=== PATIENT | male | born 1975 | race African-American/Black ===

== ENCOUNTER 2016-10-10 08:41 | Emergency (ER) | payer BC ==
[~2016-10-10] VITALS: Ht 188 cm; Wt 120.7 kg
[2016-10-10 09:02] VITALS: BP 161/91
--- NOTE | 2016-10-10 09:18 | PHYS DOC ---
Past Medical History Past Medical History: No Pertinent History Past Surgical History: Tonsillectomy Additional Information: Nonsmoker Alcohol Use: None Drug Use: None Adult General Chief Complaint Chief Complaint: CHEST WALL PAIN HPI HPI Patient is a 41 year old male who presents with intermittent left anterior chest wall pains over the past week. He has no pain currently. States these are crampy pains that occur at rest or when he twists his thorax. These pains get better with exercise. Pain is mild. Lasts seconds to minutes. He denies lightheadedness, diaphoresis, palpitations, pain radiation, nausea or vomiting, fever or chills, cough, dyspnea, hemoptysis, leg pain or swelling, orthopnea, nausea or vomiting, abdominal pain. Review of Systems Review of Systems Constitutional: Denies fever or chills [] Eyes: Denies change in visual acuity, redness, or eye pain [] HENT: Denies nasal congestion or sore throat [] Respiratory: Denies cough or shortness of breath [] Cardiovascular: No additional information not addressed in HPI [] GI: Denies abdominal pain, nausea, vomiting, bloody stools or diarrhea [] : Denies dysuria or hematuria [] Musculoskeletal: Denies back pain or joint pain [] Integument: Denies rash or skin lesions [] Neurologic: Denies headache, focal weakness or sensory changes [] Endocrine: Denies polyuria or polydipsia [] Family History Family History No family history of young coronary artery disease or young Allergies Allergies Allergies Coded Allergies Type Severity Reaction Last Updated Verified No Known Drug Allergies 01/11/14 No Physical Exam Physical Exam Constitutional: Well developed, well nourished, no acute distress, non-toxic appearance. [] HENT: Normocephalic, atraumatic, bilateral external ears normal, oropharynx moist, no oral exudates, nose normal. [] Eyes: PERRLA, EOMI. [] Neck: Normal range of motion, supple. [] Cardiovascular:Heart rate regular rhythm [] Lungs & Thorax: Bilateral breath sounds clear to auscultation. No chest wall tenderness or visual or palpable abnormality [] Abdomen: Bowel sounds normal, soft, no tenderness. [] Skin: Warm, dry, no erythema, no rash. [] Back: Normal range of motion. [] Extremities: No tenderness, ROM intact, no edema, no palpable cord. [] Neurologic: Alert and oriented X 3, normal motor function, normal sensory function, no focal deficits noted. [] Psychologic: Affect normal, judgement normal, mood normal. [] Current Patient Data Vital Signs Vital Signs Date Time Temp Pulse Resp B/P Pulse Ox O2 Delivery O2 Flow Rate FiO2 10/10/16 09:02 97.4 77 21 98 Room Air 97.4 EKG EKG EKG as interpreted by me as normal sinus rhythm, rate 76, no ST-T changes, normal intervals, no ectopy Radiology/Procedures Radiology/Procedures Chest xray as interpreted by me with no acute cardiopulmonary disease process Course & Med Decision Making Course & Med Decision Making Pertinent Labs and Imaging studies reviewed. (See chart for details) Workup is unremarkable. Suspect musculoskeletal chest wall pain. Return precautions given. He understands and agrees with plan. Dragon Disclaimer Dragon Disclaimer This electronic medical record was generated, in whole or in part, using a voice recognition dictation system. Departure Departure Impression: Primary Impression: Acute chest wall pain Disposition: 01 HOME, SELF-CARE Condition: STABLE Patient Instructions: Chest Wall Pain, [id number] Additional Instructions: Take Tylenol or ibuprofen as needed for pain. Follow-up with your primary care doctor. Return for any concerns. Manuela MENDEZ MD Oct 10, 2016 09:18
--- NOTE | 2016-10-10 09:26 | EKG ---
[facility] [address] [place] [address] Test Date: 2016-10-10 Test Time: 08:59:22 Pat Name: RUBINA CAVAZOS Department: Room: Gender: M Jack Setter: : 1975 Requested By: Manuela MENDEZ Order Number: [id number] Reading MD: Measurements Intervals [place] Rate: 76 P: 26 [place]: 154 QRS: -10 QRSD: 90 T: -1 QT: 358 QTc: 407 Interpretive Statements SINUS RHYTHM LEFTWARD AXIS OTHERWISE NORMAL ECG RI6.01 No previous ECG available for comparison
--- NOTE | 2016-10-10 09:32 | RAD ---
Chest, 2 views, 10/10/2016: History: Chest pain Comparison is made to a study from 03/20/2010. The heart size and pulmonary vascularity are normal. No pulmonary infiltrates are seen. There is no evidence of pleural fluid. IMPRESSION: No acute cardiopulmonary abnormality is detected.
== END 2016-10-10 09:47 | disposition home or self-care (01) ==
LOC: ER 08:41
DX: R07.89 Other chest pain (principal)
CPT/HCPCS: 71020; 93005; 99284-25

== ENCOUNTER 2017-04-02 13:25 | Emergency (ER) | payer BC ==
[~2017-04-02] VITALS: Ht 185.4 cm; Wt 120.7 kg
[2017-04-02 13:40] VITALS: BP 158/81
--- NOTE | 2017-04-02 14:03 | PHYS DOC ---
Past Medical History Past Medical History: No Pertinent History Past Surgical History: Tonsillectomy, Other Additional Past Surgical Histo: ADNOIDECTOMY Alcohol Use: None Drug Use: None Adult General Chief Complaint Chief Complaint: COUGH HPI HPI Patient is a 41 year old male presents to the emergency department stating that he's been having a cough congestion with runny nose and sinus pressure and drainage for the last 2-3 weeks. Patient states that he was on a round of amoxicillin, and then on a round of antibiotics, Augmentin. Patient states these medications have not helped. He states that he has had a nonproductive cough. He states he's had some chills believes she's had some fevers but has not taken his temperature. Patient denies any other medical conditions at this time. Review of Systems Review of Systems Constitutional: Denies fever or chills [] Eyes: Denies change in visual acuity, redness, or eye pain [] HENT: nasal congestion denies sore throat [] Respiratory: cough denies shortness of breath [] Cardiovascular: No additional information not addressed in HPI [] GI: Denies abdominal pain, nausea, vomiting, bloody stools or diarrhea [] : Denies dysuria or hematuria [] Musculoskeletal: Denies back pain or joint pain [] Integument: Denies rash or skin lesions [] Neurologic: Denies headache, focal weakness or sensory changes [] Endocrine: Denies polyuria or polydipsia [] Allergies Allergies Allergies Coded Allergies Type Severity Reaction Last Updated Verified No Known Drug Allergies 01/11/14 No Physical Exam Physical Exam Constitutional: Well developed, well nourished, no acute distress, non-toxic appearance. [] HENT: Normocephalic, atraumatic, bilateral external ears normal, oropharynx moist, no oral exudates, nose normal. Bilateral tympanic membranes appear to be normal. Patient with frontal sinus tenderness, no maxillary sinus tenderness noted. Throat appears without redness, exudate or erythematous. No anterior cervical adenopathy noted. Eyes: PERRLA, EOMI, conjunctiva normal, no discharge. [] Neck: Normal range of motion, no tenderness, supple, no stridor. [] Cardiovascular:Heart rate regular rhythm, no murmur [] Lungs & Thorax: Bilateral breath sounds clear to auscultation [] Skin: Warm, dry, no erythema, no rash. [] Back: No tenderness Extremities: No tenderness, no cyanosis, no clubbing, ROM intact, no edema. [] Neurologic: Alert and oriented X 3, normal motor function, normal sensory function, no focal deficits noted. [] Psychologic: Affect normal, judgement normal, mood normal. [] Current Patient Data Vital Signs Vital Signs Date Time Temp Pulse Resp B/P (MAP) Pulse Ox O2 Delivery O2 Flow Rate FiO2 04/02/17 13:40 98.3 80 18 98 Room Air 98.3 EKG EKG [] Radiology/Procedures Radiology/Procedures [facility] [address] [place] [address] IMAGING REPORT Signed PATIENT: RUBINA CAVAZOS ACCOUNT: [id number] : 1975 LOCATION: ER AGE: 41 SEX: M EXAM STATUS: REG ER ORD. PHYSICIAN: CIARA JOHNSON APRN REASON: cough, congestion 3 weeks PROCEDURE: CHEST PA & LATERAL PA and lateral chest radiographs 04/02/2017 Medical history: Cough and congestion for the last 3 days. PA and lateral digital radiographs of the chest were obtained. Comparison study is dated 10/10/2016. The cardiac silhouette is normal in size. Prostatic calcification of the thoracic aorta is seen. No acute pulmonary infiltrate is noted. No pneumothorax or pleural effusion is seen. Degenerative changes are seen involving the thoracic spine. Impression: No acute abnormality is seen. DICTATED and SIGNED BY: SAVANNA ARRIAGA MD DATE: 04/02/17 1515 CC: CIARA JOHNSON APRN; NICHELLE MADDEN MD; NON,STAFF ~ [] Course & Med Decision Making Course & Med Decision Making Pertinent Labs and Imaging studies reviewed. (See chart for details) Chest x-ray was negative for any abnormalities per Dr. Grissom. Patient will be discharged home with doxycycline with recommendations to stop taking the Augmentin. Patient will be encouraged to use Mucinex DM [id number] as well as Sudafed. Recommended plenty of fluids. Recommended following up to primary care physician in the next week. Signs and symptoms to return back to emergency department as been provided. Patient agrees with discharge instructions, treatment regimens and follow-up recommendations. All questions and concerns were answered at patient's bedside. [] Dragon Disclaimer Dragon Disclaimer This electronic medical record was generated, in whole or in part, using a voice recognition dictation system. Departure Departure Impression: Primary Impression: Sinusitis Disposition: 01 HOME, SELF-CARE Condition: STABLE Referrals: NICHELLE MADDEN MD (PCP) Patient Instructions: Sinusitis, [id number] Additional Instructions: Activity as tolerated. Stop taking Augmentin. Start taking the antibiotic as prescribed today. Mucinex DM may be taken as instructed by information security systems instructor [id number]. Sudafed may also be taken as instructed by information security systems instructor [id number]. Treatment plenty of fluids. Tylenol or ibuprofen pain and discomfort as well as fevers. Follow-up primary care physician within the week. Return back to emergency prior signs symptoms of become worse. Scripts Doxycycline Hyclate (DOXYCYCLINE HYCLATE) 100 Mg Capsule 1 CAP PO BID, #20 CAP Prov: CIARA JOHNSON APRN 04/02/17 CIARA JOHNSON APRN Apr 02, 2017 14:03
--- NOTE | 2017-04-02 15:19 | RAD ---
PA and lateral chest radiographs 04/02/2017 Medical history: Cough and congestion for the last 3 days. PA and lateral digital radiographs of the chest were obtained. Comparison study is dated 10/10/2016. The cardiac silhouette is normal in size. Prostatic calcification of the thoracic aorta is seen. No acute pulmonary infiltrate is noted. No pneumothorax or pleural effusion is seen. Degenerative changes are seen involving the thoracic spine. Impression: No acute abnormality is seen.
[2017-04-02] MEDS ORDERED: DOXY100C2 PO (15:20)
== END 2017-04-02 15:27 | disposition home or self-care (01) ==
LOC: ER 13:25
DX: J32.1 Chronic frontal sinusitis (principal)
CPT/HCPCS: 71020; 99284-25

== ENCOUNTER 2017-10-27 18:36 | Emergency (ER) | payer BC ==
[2017-10-27] MEDS: cefTRIAXone IM 1 GM VIAL IM (20:10)
== END 2017-10-27 20:32 | disposition home or self-care (01) ==
LOC: ER 18:36
DX: L03.115 Cellulitis of right lower limb (principal)
CPT/HCPCS: 93971; 96372; 99284-25; J0696

== ENCOUNTER → 2018-10-26 | Outpatient (CLI) | payer BC ==
[2017-10-27 18:36] VITALS: BP 146/94
[~2018-10-26] MED LIST: DOXY100C2 PO; HYDR-3164 PO; SULF1TAB24 PO
--- NOTE | 2018-10-26 12:20 | RAD ---
EXAM: Renal sonogram. HISTORY: Microscopic hematuria. TECHNIQUE: Sonographic imaging of the kidneys and bladder was performed. COMPARISON: None. FINDINGS: The left kidney is partially obscured due to bowel gas. The right kidney measures 11.8 cm [id number]. The left kidney measures 11.8 cm [id number]. There is no hydronephrosis. No solid or cystic renal lesion is seen. There is echogenic renal parenchyma. The aorta and inferior vena cava are partially obscured due to bowel gas. The bladder is unremarkable. The ureteral jets are both seen. The prostate measures 4.2 cm maximum dimension with a volume of 31 cc. IMPRESSION: 1. Slightly echogenic renal parenchyma. This may be due to imaging technique or medical renal disease. 2. Prominent prostate. Electronically signed by: Trinidad Stallworth MD (10/26/2018 12:17 PM) [facility]
== END | disposition home or self-care (01) ==
LOC: US 08:28
PROVIDERS: ATTEND Urology
DX: R31.29 Other microscopic hematuria (principal)
CPT/HCPCS: 76770

== ENCOUNTER 2020-09-20 17:53 | Emergency (ER) | payer BC ==
[~2020-09-20] VITALS: Ht 185.4 cm; Wt 122.0 kg
[2020-09-20] MEDS ORDERED: fentaNYL PF VIAL 100 MCG/2 ML VIAL IVP ONE (18:45)
[2020-09-20] MEDS ORDERED: ONDANSETRON PF 4 MG/2 ML VIAL. IVP ONE (18:45)
--- NOTE | 2020-09-20 18:46 | ED.ADGEN ---
Past Medical History Past Medical History: Diabetes-Type II, High Cholesterol, Hypertension Past Surgical History: Tonsillectomy, Other Additional Past Surgical Histo: ADNOIDECTOMY, LEFT SHOULDER ROTATOR CUFF REPAIR Smoking Status: Never Smoker Alcohol Use: None Drug Use: None General Adult EDM: Chief Complaint: ABDOMINAL PAIN HPI: HPI: Patient is a 45 year old male coming in for low abdominal pain for about 3 days. Patient states the pain has been getting worse. Says the pain is in her suprapubic area. He is also been having diarrhea for the past 4 days. Denies any history of constipation denies any blood in stools or melena. States he has had a little bit of dysuria but denies testicular pain or discharge. Denies any nausea or vomiting. States he otherwise been well. Has not noticed any change in the color or smell of his urine. Has history of diabetes, no abdominal surgeries. The pain is not worse with walking. Review of Systems: Review of Systems: All other systems within normal limits except for as noted in the HPI Current Medications: Current Medications Medications (Trade) Dose Ordered Sig/Dunia Start Time Stop Time Status Last Admin Dose Admin Fentanyl Citrate (Fentanyl 2ml Vial) 75 mcg 1X ONCE 09/20/20 18:45 09/20/20 18:46 DC 09/20/20 19:07 75 MCG Info (CONTRAST GIVEN -- Rx MONITORING) 1 each PRN DAILY PRN 09/20/20 20:00 09/22/20 19:59 Iohexol (Omnipaque 300 Mg/ml) 75 ml 1X ONCE 09/20/20 20:00 09/20/20 20:01 DC 09/20/20 20:39 75 ML Ondansetron HCl (Zofran) 4 mg 1X ONCE 09/20/20 18:45 09/20/20 18:46 DC 09/20/20 19:07 4 MG Allergies: Allergies: Allergies Coded Allergies Type Severity Reaction Last Updated Verified No Known Drug Allergies 01/11/14 No Physical Exam: PE: Constitutional: Well developed, well nourished, no acute distress, non-toxic appearance. [] HENT: Normocephalic, atraumatic, bilateral external ears normal, nose normal. [] Eyes: PERRLA, conjunctiva normal, no discharge. [] Neck: No rigidity, supple, no stridor. [] Cardiovascular: Regular rate and rhythm, brisk cap refill [] Lungs & Thorax: Non labored symmetric respirations, no tachypnea or respiratory distress [] Abdomen: Soft, nondistended, diffuse generalized lower abdominal tenderness without guarding or rebound. Negative Jett sign. No inguinal hernias Skin: Warm, dry, no erythema, no rash. [] Back: Unremarkable Extremities: No deformities, range of motion grossly intact, no lower extremity edema [] Neurologic: Alert and oriented X 3, no focal deficits noted. [] Psychologic: Affect normal, judgement normal, mood normal. [] Current Patient Data: Labs: Laboratory Tests Test 09/20/20 19:00 09/20/20 19:10 White Blood Count 6.8 x10^3/uL (4.0-11.0) Red Blood Count 5.24 x10^6/uL (4.30-5.70) Hemoglobin 14.2 g/dL (13.0-17.5) Hematocrit 42.7 % (39.0-53.0) Mean Corpuscular Volume 81 fL (79-100) Mean Corpuscular Hemoglobin 27 pg (25-35) Mean Corpuscular Hemoglobin Concent 33 g/dL (31-37) Red Cell Distribution Width 14.0 % (11.5-14.5) Platelet Count 204 x10^3/uL (140-400) Neutrophils (%) (Auto) 57 % (31-73) Lymphocytes (%) (Auto) 30 % (24-48) Monocytes (%) (Auto) 11 % (0-9) H Eosinophils (%) (Auto) 2 % (0-3) Basophils (%) (Auto) 1 % (0-3) Neutrophils # (Auto) 3.9 x10^3/uL (1.8-7.7) Lymphocytes # (Auto) 2.0 x10^3/uL (1.0-4.8) Monocytes # (Auto) 0.7 x10^3/uL (0.0-1.1) Eosinophils # (Auto) 0.1 x10^3/uL (0.0-0.7) Basophils # (Auto) 0.0 x10^3/uL (0.0-0.2) Sodium Level 138 mmol/L (136-145) Potassium Level 4.0 mmol/L (3.5-5.1) Chloride Level 104 mmol/L (98-107) Carbon Dioxide Level 25 mmol/L (21-32) Anion Gap 9 (6-14) Blood Urea Nitrogen 13 mg/dL (8-26) Creatinine 1.0 mg/dL (0.7-1.3) Estimated GFR (Cockcroft-Gault) 96.9 BUN/Creatinine Ratio 13 (6-20) Glucose Level 100 mg/dL (70-99) H Calcium Level 8.9 mg/dL (8.5-10.1) Total Bilirubin 0.2 mg/dL (0.2-1.0) Aspartate Amino Transferase (AST) 19 U/L (15-37) Alanine Aminotransferase (ALT) 28 U/L (16-63) Alkaline Phosphatase 61 U/L (46-116) Total Protein 7.1 g/dL (6.4-8.2) Albumin 3.1 g/dL (3.4-5.0) L Albumin/Globulin Ratio 0.8 (1.0-1.7) L Lipase 90 U/L (73-393) Urine Collection Type Unknown Urine Color Yellow Urine Clarity Clear Urine pH 6.5 (<5.0-8.0) Urine Specific [place] 1.015 (1.000-1.030) Urine Protein Negative mg/dL (NEG-TRACE) Urine Glucose (UA) Negative mg/dL (NEG) Urine Ketones (Stick) Negative mg/dL (NEG) Urine Blood Negative (NEG) Urine Nitrite Negative (NEG) Urine Bilirubin Negative (NEG) Urine Urobilinogen Dipstick 1.0 mg/dL (0.2 mg/dL) Urine Leukocyte Esterase Negative (NEG) Urine RBC 1-2 /HPF (0-2) Urine WBC 0 /HPF (0-4) Urine Bacteria 0 /HPF (0-FEW) Laboratory Tests 09/20/20 19:00 Laboratory Tests 09/20/20 19:00 Vital Signs: Vital Signs Date Time Temp Pulse Resp B/P (MAP) Pulse Ox O2 Delivery O2 Flow Rate FiO2 09/20/20 19:07 Room Air 09/20/20 18:15 98.1 84 18 136/72 (93) 99 98.1 EKG: EKG: [] Heart Score: Risk Factors: Risk Factors: DM, Current or recent (<one month) smoker, HTN, HLP, family history of CAD, obesity. Risk Scores: Score 0 - 3: 2.5% MACE over next 6 weeks - Discharge Home Score 4 - 6: 20.3% MACE over next 6 weeks - Admit for Clinical Observation Score 7 - 10: 72.7% MACE over next 6 weeks - Early Invasive Strategies Radiology/Procedures: Radiology/Procedures: [] Course & Med Decision Making: Course & Med Decision Making Pertinent Labs and Imaging studies reviewed. (See chart for details) [] Dragon Disclaimer: Dragon Disclaimer: This electronic medical record was generated, in whole or in part, using a voice recognition dictation system. Departure Departure Impression: Primary Impression: Colitis Disposition: 01 DC HOME SELF CARE/HOMELESS Condition: STABLE Referrals: NICHELLE MADDEN MD (PCP) Patient Instructions: Colitis Scripts Acetaminophen With Codeine (ACETAMINOPHEN-COD #3 TABLET) 1 Each Tablet 1 TAB PO PRN Q6HRS PRN for PAIN for 3 Days, #10 TAB Prov: FELICIA LAKHANI MD 09/20/20 FELICIA LAKHANI MD Sep 20, 2020 18:46
[2020-09-20 19:11] LABS: BASO % 1 % (0-3); EOS # 0.1 x10^3/uL (0.0-0.7); EOS % 2 % (0-3); HEMATOCRIT 42.7 % (39.0-53.0); HEMOGLOBIN 14.2 g/dL (13.0-17.5); LYMPH % 30 % (24-48); MEAN CORPUSCULAR HEMOGLOBIN 27 pg (25-35); MEAN CORPUSCULAR HGB CONC 33 g/dL (31-37); MEAN CORPUSCULAR VOLUME 81 fL (79-100); MONO # 0.7 x10^3/uL (0.0-1.1); MONO % 11 % (0-9); NEUT # 3.9 x10^3/uL (1.8-7.7); NEUT % 57 % (31-73); PLATELET COUNT 204 x10^3/uL (140-400); RED BLOOD COUNT 5.24 x10^6/uL (4.30-5.70); WHITE BLOOD COUNT 6.8 x10^3/uL (4.0-11.0)
[2020-09-20 19:17] LABS: BILIRUBIN,URINE NEGATIVE (NEG); CLARITY,URINE CLEAR; COLOR,URINE YELLOW; NITRITE,URINE NEGATIVE (NEG); PH,URINE 6.5 (<5.0-8.0); PROTEIN,URINE NEGATIVE (NEG-TRACE)
[2020-09-20 19:19] LABS: CALCIUM 8.9 mg/dL (8.5-10.1); GFR 96.9
[2020-09-20 19:23] LABS: BACTERIA,URINE 0 /HPF (0-FEW); WBC,URINE 0 /HPF (0-4)
[2020-09-20 19:25] LABS: ALBUMIN 3.1 g/dL (3.4-5.0); ALBUMIN/GLOBULIN RATIO 0.8 (1.0-1.7); TOTAL BILIRUBIN 0.2 mg/dL (0.2-1.0); TOTAL PROTEIN 7.1 g/dL (6.4-8.2)
[2020-09-20] MEDS ORDERED: IOHEXOL 300 MG/ML 100ML VIAL. IV ONE (20:00)
[2020-09-20] MEDS ORDERED: CONTRAST GIVEN. MC PRN (20:00)
[2020-09-20 20:08] VITALS: BP 131/60
--- NOTE | 2020-09-20 21:20 | RAD ---
EXAM: CT Abdomen and Pelvis with IV contrast CLINICAL HISTORY: Low abdominal pain COMPARISON: none TECHNIQUE: Helical CT of the abdomen and pelvis was performed following the administration of intrave nous contrast. Axial, coronal and sagittal reformatted images were generated. PQRS compliance statement - One or more of the following individualized dose reduction techniques wer e utilized for this study: 1. Automated exposure control 2. Adjustment of the mA and/or kV according to patient size 3. Use of iterative reconstruction technique FINDINGS: Lower Chest: Lung bases are clear. Abdomen and Pelvis: Liver, gallbladder, pancreas, spleen and adrenal glands are unremarkable. Cortical thinning interpolar left kidney otherwise symmetric nephrograms. No focal renal lesion. No h ydronephrosis. No hydroureter. Moderate colonic stool content is seen. No small or large bowel dilatation. No bowel obstruction. Quyen endix is normal. Infiltration about the sigmoid colon with associated wall thickening consistent with colitis. No defi nite associated colonic diverticulum is seen. No abdominal or pelvic ascites. No abdominal or pelvic lymphadenopathy. Bones: No aggressive osseous lesion is seen. Degenerative changes of the spine are noted. IMPRESSION: Infiltration about the sigmoid colon consistent with colitis. This may be infectious or inflammatory in nature. Diverticulitis may also have this appearance although a discrete inflamed diverticulum is not identified. Following resolution of the acute process, recommend colonoscopy to exclude associate d mass. Electronically signed by: Flaquito Mcqueen MD (09/20/2020 9:10 PM) KENDRA
[2020-09-20] MEDS ORDERED: ACET1TAB33 PO (21:52)
== END 2020-09-20 22:25 | disposition home or self-care (01) ==
LOC: ER 17:53
DX: K52.9 Noninfective gastroenteritis and colitis, unspecified (principal); E11.9 Type 2 diabetes mellitus without complications; I10 Essential (primary) hypertension; E78.00 Pure hypercholesterolemia, unspecified
CPT/HCPCS: 36415; 74177; 80053; 81001; 83690; 85025; 96374; 96375; 99285; J2405; J3010; Q9967

== ENCOUNTER → 2021-06-28 | Outpatient (CLI) | payer BC ==
[~2021-06-28] MED LIST changes: +ACET1TAB33 PO; -DOXY100C2 PO; +DOXY100C3 PO
--- NOTE | 2021-06-28 16:08 | KCIC ---
Exam Date: 06/28/2021 10:25 AM MRI LEFT UPPER EXTREMITY JOINT WITHOUT CONTRAST Indication: Reason: OSTEOARTHRITIS OF LEFT SHOULDER, ROTATOR CUFF SYNDROME / Spl. Instructions: / Hi story: Left shoulder pain and stiffness for a couple of yrs. NKI.. TECHNIQUE: Routine multiplanar MR imaging of the shoulder was performed without contrast. FINDINGS: There is a full-thickness tear involving the supraspinatus tendon with approximately 2 cm retraction of the torn tendon fibers. Abnormal signal in the supraspinatus, infraspinatus, and subscapularis te ndons is consistent with tendinopathy. The teres minor tendon is intact. Rotator cuff musculature demonstrates normal signal and bulk. Mild degenerative changes are seen at the AC joint. There is an intact type II acromion. Small flui d is seen in the subacromial/subdeltoid bursa. Long head of the biceps tendon is intact. The posterior labrum is small in size with abnormal morpho logy consistent with degenerative changes, though lack of intra-articular contrast limits evaluation. Mild degenerative changes are present at the glenohumeral joint. Marrow edema and abnormal linear T1 signal involving the greater tuberosity raises suspicion for a nondisplaced subacute or chronic avul candice fracture. IMPRESSION: Full-thickness tear of the supraspinatus tendon with retraction. Diffuse rotator cuff tendinopathy n oted. Abnormal marrow signal involving the greater tuberosity is suspicious for a nondisplaced subacute hea ling or chronic avulsion fracture. Electronically signed by: Alexi Torres MD (06/28/2021 4:05 PM) [id number]
== END ==
LOC: KCIC MRI 10:01
PROVIDERS: ATTEND Student in an Organized Health Care Education/Training Program
DX: M75.122 Complete rotator cuff tear or rupture of left shoulder, not specified as traumatic (principal); M67.813 Other specified disorders of tendon, right shoulder; M19.012 Primary osteoarthritis, left shoulder; R60.0 Localized edema
CPT/HCPCS: 73221